=== PATIENT | female | born 1965 | race Caucasian/White ===

== ENCOUNTER → 2018-10-09 | Outpatient (CLI) | payer BC ==
[2018-10-09 11:50] LABS: CALCIUM 9.1 mg/dL (8.5-10.1); CREATININE 0.7 mg/dL (0.6-1.3); MAGNESIUM 1.9 mg/dL (1.8-2.4)
[2018-10-09 12:02] LABS: CALCIUM 9.1 mg/dL (8.5-10.1); CREATININE 0.7 mg/dL (0.6-1.3); PHOSPHORUS* 3.9 mg/dL (2.5-4.9)
== END ==
LOC: M.LAB 11:28
PROVIDERS: Internal Medicine Nephrology
DX: N20.0 Calculus of kidney (principal)

== ENCOUNTER → 2019-08-16 | Outpatient (CLI) | payer BC ==
--- NOTE | 2019-08-16 12:50 | EKG ---
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1965 Requested By: Ruddy Bell Order Number: [id number] Reading MD: Luis Carlos Go Measurements Intervals [place] Rate: 65 P: 57 ND: 191 QRS: 86 QRSD: 133 T: 45 QT: 395 QTc: 411 Interpretive Statements Sinus rhythm Nonspecific intraventricular conduction delay Baseline wander in lead(s) II,III,aVF No previous ECG available for comparison Electronically Signed On 08-16-2019 12:50:10 [employer] OFFIC[employer] by Luis Carlos Go [email or web address] <ELECTRONICALLY SIGNED> By: Luis Carlos Go MD, [facility] 08/16/19 1250 1225 Luis Carlos Go MD, FACC /EPI
== END ==
LOC: M.CRD 12:02
DX: Z01.818 Encounter for other preprocedural examination (principal)

== ENCOUNTER → 2019-11-12 | Outpatient (CLI) | payer BC ==
[2019-11-12 10:10] LABS: CALCIUM 8.8 mg/dL (8.5-10.1); CREATININE 0.7 mg/dL (0.6-1.3); POTASSIUM 4.3 mmol/L (3.5-5.1)
[2019-11-12 10:33] LABS: CALCIUM 8.6 mg/dL (8.5-10.1); CREATININE 0.7 mg/dL (0.6-1.3); PHOSPHORUS* 3.7 mg/dL (2.5-4.9)
== END ==
LOC: M.LAB 09:28
PROVIDERS: Internal Medicine Nephrology
DX: N20.0 Calculus of kidney (principal)

== ENCOUNTER 2021-04-14 03:43 | Inpatient (IN) | payer BC ==
[~2021-04-14] VITALS: Ht 152.4 cm; Wt 71.2 kg
[2021-04-14 03:49] VITALS: BP 129/87
[2021-04-14] MEDS ORDERED: MACROBID 100 M100 MG PO (03:54)
[2021-04-14 04:15] LABS: URINE BILIRUBIN NEGATIVE (Negative); URINE BLOOD 1+ (Negative); URINE CLARITY CLEAR; URINE COLOR DARK YELLOW; URINE GLUCOSE-RANDOM TRACE (Negative); URINE KETONES NEGATIVE (Negative); URINE LEUKOCYTES-REFLEX TRACE (Negative); URINE PROTEIN TRACE (Negative)
[2021-04-14 04:22] LABS: HEMATOCRIT 39.4 % (37.0-47.0); HEMOGLOBIN 13.4 gm/dL (12.0-15.0); MCH 31.2 pg (26.0-34.0); MCV 91.7 fL (80.0-100.0); MPV 7.4 fl. (7.2-11.1); NUCLEATED RBCS 0 /100WBC; PLATELET COUNT* 203 thou/uL (150-400); RDW-CV 13.8 % (10.5-14.5); WBC 11.8 thou/uL (4.0-11.0)
[2021-04-14 04:26] LABS: URINE NITRITE-REFLEX POSITIVE (Negative)
[2021-04-14 04:30] LABS: CALCIUM 8.7 mg/dL (8.5-10.1); CREATININE 0.9 mg/dL (0.6-1.3)
[2021-04-14 04:35] LABS: ALBUMIN 3.8 g/dL (3.4-5.0); TOTAL BILIRUBIN 0.7 mg/dL (<0.1-1.0); TOTAL PROTEIN 7.9 g/dL (6.4-8.2)
[2021-04-14 05:24] LABS: CASTS None Seen /LPF (None Seen); SQUAMOUS 0-3 Few /LPF (0-3)
[2021-04-14 05:25] LABS: BACTERIA-REFLEX None Seen /HPF (None Seen); CRYSTALS None Seen /LPF (None Seen); URINE RBC 3-10 Few /HPF (0-2); URINE WBC-REFLEX 0-5 Rare /HPF (0-5)
[2021-04-14 05:48] LABS: ABSOLUTE LYMPHOCYTES 1.5 thou/uL (0.8-5.3); ABSOLUTE MONOCYTES 0.7 thou/uL (0.0-1.2); ABSOLUTE NEUTROPHILS 9.6 thou/uL (1.6-8.1)
[2021-04-14 05:49] LABS: PLATELET ESTIMATE ADEQUATE
[2021-04-14 12:03] VITALS: BP 119/73
[2021-04-14 12:55] VITALS: BP 121/62
[2021-04-14 15:10] VITALS: BP 120/68
[2021-04-14 20:29] VITALS: BP 111/51
[2021-04-15 05:09] LABS: ABSOLUTE LYMPHOCYTES 1.5 thou/uL (0.8-5.3); ABSOLUTE NEUTROPHILS 14.2 thou/uL (1.6-8.1); BASOPHILS 0.1 %; HEMATOCRIT 32.6 % (37.0-47.0); LYMPHOCYTES 8.7 %; MCH 31.3 pg (26.0-34.0); MCHC 33.6 g/dL (28.0-37.0); MCV 93.1 fL (80.0-100.0); MONOCYTES 5.8 %; MPV 7.7 fl. (7.2-11.1); NUCLEATED RBCS 0 /100WBC; PLATELET COUNT* 188 thou/uL (150-400); POLYS 85.4 %; RDW-CV 14.2 % (10.5-14.5); WBC 16.6 thou/uL (4.0-11.0)
[2021-04-15 05:18] LABS: HEMOGLOBIN 10.9 gm/dL (12.0-15.0)
[2021-04-15 06:05] LABS: CALCIUM 7.7 mg/dL (8.5-10.1); CREATININE 0.6 mg/dL (0.6-1.3)
[2021-04-15 08:00] VITALS: BP 111/54
[2021-04-15 16:46] VITALS: BP 104/61
[2021-04-15 20:45] VITALS: BP 133/78
[2021-04-16 04:21] LABS: HEMATOCRIT 29.7 % (37.0-47.0); HEMOGLOBIN 10.3 gm/dL (12.0-15.0); MCH 32.2 pg (26.0-34.0); MCHC 34.5 g/dL (28.0-37.0); MCV 93.4 fL (80.0-100.0); MPV 7.5 fl. (7.2-11.1); RBC 3.19 mil/uL (4.20-5.00); RDW-CV 14.1 % (10.5-14.5); WBC 10.7 thou/uL (4.0-11.0)
[2021-04-16 05:21] LABS: ALBUMIN 2.6 g/dL (3.4-5.0); CALCIUM 7.4 mg/dL (8.5-10.1); CREATININE 0.7 mg/dL (0.6-1.3); MAGNESIUM 1.8 mg/dL (1.8-2.4); POTASSIUM 3.8 mmol/L (3.5-5.1); TOTAL BILIRUBIN 0.2 mg/dL (<0.1-1.0); TOTAL PROTEIN 5.6 g/dL (6.4-8.2)
[2021-04-16 05:41] VITALS: BP 133/78
[2021-04-16 07:45] VITALS: BP 125/76
[2021-04-16] MEDS ORDERED: CIPRO500 M1 PO (11:37)
[2021-04-16] MEDS ORDERED: FLOMAX0.4 MG PO (11:37)
[2021-04-16] MEDS ORDERED: IBUPROFEN 600600 M1 PO (11:37)
[2021-04-16 11:58] VITALS: BP 125/76
[2021-04-16 12:52] VITALS: BP 125/76
[2021-04-16 15:00] VITALS: BP 124/61
--- NOTE | 2021-04-21 07:23 | OP ---
[address] [address] OPERATIVE REPORT Name: RAKEL MILTON Room: [address] M.R.#: [id number] Admission: 04/16/21 Attend Phys: Bekah Zamorano Discharge: 04/16/21 Date of : 63 Report #: [id number] THIS REPORT FOR: cc: Daquan Plummer,Daquan Arredondo,Derad Garcia MD ~ DATE OF SURGERY: 04/16/2021 PREOPERATIVE DIAGNOSES: Left distal ureteral calculus, left renal calculi. POSTOPERATIVE DIAGNOSES: Left distal ureteral calculus, left renal calculi. PROCEDURE: Cystoscopy with left ureteroscopy, laser stone manipulation, double-J stent, fluoroscopy. SURGEON: Dread Waters MD. ANESTHESIA: General. COMPLICATIONS: None. DRAINS: Left 6 x 24 double-J stent. FINDINGS: Left distal ureteral calculus, left renal calculi. Left distal stone treated. DISPOSITION: Follow up in 1 month with KUB. The patient to pull out stent via strings in 5 days. HISTORY: This is a 55-year-old stone former, who has had multiple procedures by Dr. Burnett in the past for kidney stones. She has been recently moved to [facility], presents to the Emergency Room with left distal stone on presentation for flank pain. She now presents to the operating room to treat her distal stone with ureteroscopy. Risks, benefits, expected outcomes and alternatives explained. Informed consent given. OPERATIVE PROCEDURE: She was taken back to the operating room and given preoperative antibiotics and general anesthetic, prepped and draped in standard sterile fashion in dorsal lithotomy position on the operating table. Surgical timeout was performed. Upon inspection of the urethra, it was a little bit narrow, so I performed gentle dilation with the Chad sounds from 20-Dutch up to 26-Dutch. I was then able to negotiate through the urethra with my 20-Dutch cystoscope and was able to get into the bladder. The bladder appeared to be otherwise normal. I cannulated the left ureteral orifice with an open-[place] [address] OPERATIVE REPORT Name: RAKEL MILTON Room: [address]#: [id number] Admission: 04/16/21 Attend Phys: Bekah Zamorano Discharge: 04/16/21 Date of : 63 Report #: [id number] contrast up the ureter, showing the filling defect in the distal ureter. I was able to bypass the filling defect with my sensor wire and pass it up into the kidney under fluoroscopic guidance without difficulty. I offloaded my cystoscope. I went alongside my guidewire with my 4.5-Dutch semirigid ureteroscope and was able to intubate the distal ureter about 4 cm up and I was able to find the stone. It was about 4 mm in size. I used a 200 micron holmium laser fiber at a setting of 4 grossman and broke up the stone into small fragments, which I removed with the NCircle basket. The ureter appeared to be uninjured and not much swelling. I was able to offload my ureteroscope and the ureter appeared to be normal in my way out. I unloaded my cystoscope over my guidewire, passed my open-ended catheter up the UPJ, opacified the collecting system and was able to see that she had some mild hydronephrosis, no extravasation. There was a filling defect in the lower and upper pole and the compound calices, probably stone and it looked like it was embedded. I was able to measure out ureteral length and passed a 6 x 24 double-J stent with a nice coil seen in the renal pelvis and bladder. The bladder was drained. She tolerated the procedure well and went to recovery in stable condition. I left the strings on and she will pull out her stent in 5 days at home. I gave her prescriptions and she will follow up in 1 month in the office with a KUB. <ELECTRONICALLY SIGNED> By: Dread Waters MD 04/21/21 0723 1154 [id number] Waters MD /nt
== END 2021-04-16 17:51 | disposition home or self-care (01) | DRG 661 ==
LOC: M.ERS 03:43 → M.TBA-ER 07:37 → M.3W 15:20
PROVIDERS: Emergency Medicine; Internal Medicine; Physician Assistant; ADMIT Internal Medicine; ATTEND Internal Medicine
PROC: 0T778DZ Dilation of Left Ureter with Intraluminal Device, Via Natural or Artificial Opening Endoscopic (ICD-10-PCS; principal; 2021-04-16)
PROC: 0TC78ZZ Extirpation of Matter from Left Ureter, Via Natural or Artificial Opening Endoscopic (ICD-10-PCS; principal; 2021-04-16)
DX: N13.6 Pyonephrosis (principal); K80.80 Other cholelithiasis without obstruction; Z20.822 Contact with and (suspected) exposure to COVID-19; Z87.442 Personal history of urinary calculi; Z88.6 Allergy status to analgesic agent; Z88.2 Allergy status to sulfonamides

== ENCOUNTER → 2021-09-09 | Outpatient (CLI) | payer BC ==
[~2021-09-09] MED LIST: CIPRO500 M1 PO; FLOMAX0.4 MG PO; IBUPROFEN 600600 M1 PO; MACROBID 100 M100 MG PO
== END ==
LOC: M.RAD 11:20
PROVIDERS: ATTEND Urology
DX: N20.0 Calculus of kidney (principal)